=== PATIENT | female | born 1960 | race Caucasian/White ===

== ENCOUNTER 2023-07-13 10:11 | Observation (INO) ==
[2023-07-13] MEDS ORDERED: cefTRIAXone SODIUM 2,000 MG/70 ML BAG IV STA (11:35)
[2023-07-13 11:37] LABS: Basophils # (auto) 0.04 K/uL (0.00-0.20); Basophils % (auto) 0.5 %; Eosinophils # (auto) 0.33 K/uL (0.00-0.50); Eosinophils % (auto) 4.4 %; Hematocrit (blood only) 33.6 % (37.0-47.0); Hemoglobin 10.9 g/dl (12.0-16.0); Immature Granulocytes # (auto) 0.05 K/uL (0.01-0.20); Immature Granulocytes % (auto) 0.7 %; Lymphocytes # (auto) 1.33 K/uL (1.20-3.40); Lymphocytes % (auto) 17.8 %; Mean Corpuscular Hemoglobin 25.5 pg (25.0-34.0); Mean Corpuscular Hgb Conc 32.4 g/dL (32.0-36.0); Mean Corpuscular Volume 78.7 fL (80.0-100.0); Mean Platelet Volume 9.2 fL (9.4-12.4); Monocytes # (auto) 0.44 K/uL (0.11-0.59); Monocytes % (auto) 5.9 %; Neutrophils % (auto) 70.7 %; Platelet Count 249 K/uL (130-400); RDW Coefficient of Variation 14.7 % (11.5-14.5); RDW Standard Deviation 41.9 fL (36.4-46.3); Red Blood Count 4.27 M/uL (4.20-5.40); White Blood Count 7.49 K/ul (4.8-10.8)
--- NOTE | 2023-07-13 11:39 | XRay Report ---
XR chest 1V portable HISTORY: Sepsis COMPARISON: Chest 11/20/2022. FINDINGS: The lungs are clear. Cardiac silhouette is normal in size. No pleural effusions. No pneumot horax. IMPRESSION: No acute process. ACT 112: Negative or not required by law. Electronically signed by: Jayce Eller M.D. 07/13/2023 11:38 AM
--- NOTE | 2023-07-13 11:40 | Emergency Department Note ---
History of Present Illness General Chief complaint: Infection Stated complaint: INNER LEFT LEG INFECTION REDNESS Time Seen by Provider: 07/13/23 10:38 History of Present Illness Maximum Pain Intensity: 8 62-year-old female presents emergency department is type II diabetic has had a 3-week history of skin changes in the left lower extremity medially and has been picking at the wound over the course of the past 2 to 3 weeks. Patient recently was seen by her primary care physician and was started on wound care with bandaging and use of Aquaphor as well as currently on a 7-day course of Bactrim. Patient states at times that the wound is burning. Patient has no other complaints. No fever no chills. No streaking up the left lower extremity and no other pain. Home Medications Medication Instructions Recorded Confirmed Type levothyroxine 137 mcg tablet 137 mcg PO DAILY #90 tabs 12/26/22 07/06/23 Rx triamcinolone acetonide 55 mcg 2 spray intranasal DAILY #16.9 mL 12/26/22 07/06/23 Rx nasal spray aerosol (Nasacort Allergy) trazodone 50 mg tablet 50 mg PO DAILY PRN insomnia #30 03/16/23 07/06/23 Rx tabs benzonatate 100 mg capsule 100 mg PO BID PRN cough #30 caps 03/20/23 07/06/23 Rx bupropion HCl 100 mg tablet 100 mg PO QAM 04/30/23 07/06/23 History pantoprazole 40 mg tablet,delayed 40 mg PO BID #60 tabs 05/15/23 07/06/23 Rx release hydroxyzine HCl 25 mg tablet 25 mg PO HS PRN anxiety #90 tabs 06/26/23 07/06/23 Rx ondansetron 4 mg disintegrating 4 mg PO Q8H PRN nausea and 06/26/23 07/06/23 Rx tablet vomiting #30 tabs tirzepatide 5 mg/0.5 mL 5 mg (0.5 mL) subcut WK #2 mL 07/02/23 07/06/23 Rx subcutaneous pen injector sulfamethoxazole 800 1 tab PO BID 7 days #14 tabs 07/06/23 07/06/23 Rx mg-trimethoprim 160 mg tablet (Bactrim DS) Allergies Allergy/AdvReac Type Severity Reaction Status Date / Time fluoxetine [From Prozac] Allergy Severe Depression Verified 07/06/23 15:34 fluticasone [From Flonase] Allergy Intermediate Cough Verified 07/06/23 15:34 influenza virus vac qs Allergy Intermediate Hives Verified 07/06/23 15:34 21-22(2 yr up) cell derived [From Flucelvax Quad 2040-4931] influenza virus vaccine tv Allergy Intermediate Hives Verified 07/06/23 15:34 2013-14(18-49 yrs),rcmb [From Flublok] Past Med/Surg History Medical History Anemia Anxiety Arthritis Environmental and seasonal allergies GERD (gastroesophageal reflux disease) History of COVID-19 01/18/23 > not hospitalized > cough, vomiting, continues with shortness of breath, and feeling like something stuck in throat / reason for up coming EGD Hx of bipolar disorder Hypothyroidism Mild intellectual disability Obesity Panic attack on occasion approx 2 per month Paroxysmal nocturnal dyspnea no device Peripheral neuropathy BLE Type 2 diabetes mellitus with peripheral neuropathy NIDDM Surgical History Family history of reaction to anesthesia MOTHER SLOW TO WAKE UP History of cholecystectomy History of colonoscopy History of tubal ligation S/P LEEP of cervix Slow to wake up after anesthesia [place] teeth extracted Family History Grandmother (Maternal) Diabetes Father Hypothyroidism Mother Hypothyroidism Other HOCM (hypertrophic obstructive cardiomyopathy) Denies family history of Ovarian cancer Prostate cancer Myocardial infarction Breast cancer Colorectal cancer Social History Smoking Status: Never smoker Second Hand Exposure: No; Do You Dip or Chew Tobacco: No; Hx Alcohol Use: Yes Alcohol Intake Frequency: Monthly or Less Hx Substance Use: No Preferred Language: Sinhala Communication Ability: Effective Visual Impairment: No Limitations Hearing Ability: Normal 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 Works over nights. Feels Safe at Home: Yes Childhood Exposure to Second-Hand Smoke: Yes Dental Care, Regularly: Yes Physical Activity Frequency: Daily Seatbelt Use: always Sunscreen Use: No Assistive Devices: Glasses Review of Systems A total of 10 systems reviewed and were otherwise negative Constitutional: no fever Integumentary: + skin ulcer, + sores and + erythema Physical Exam Vital Signs Vital Signs - 24 hr 07/13/23 10:23 07/13/23 11:29 07/13/23 11:32 Temperature 36.1 C L Temperature Source Temporal Artery Scan Pulse Rate 72 Pulse Rate [Apical] 61 Pulse Rhythm [Apical] Respiratory Rate 16 18 Respiratory Effort / Characteristics Non-Labored Respiratory Depth Normal Normal Blood Pressure 108/72 Blood Pressure [Left Arm] 139/51 L Blood Pressure Mean 84 Blood Pressure Mean [Left Arm] 80 Blood Pressure Position [Left Arm] Pulse Oximetry 99 98 95 Oxygen Delivery Method Room Air Room Air Room Air Sepsis Recent Fever Within 48 Hours No Sepsis New/Unexplained Change in Mental Status N/A Sepsis Action Taken by Nursing No Action Required 07/13/23 12:03 Temperature Temperature Source Pulse Rate Pulse Rate [Apical] 67 Pulse Rhythm [Apical] Regular Respiratory Rate 16 Respiratory Effort / Characteristics Respiratory Depth Normal Blood Pressure Blood Pressure [Left Arm] 127/55 L Blood Pressure Mean Blood Pressure Mean [Left Arm] 79 Blood Pressure Position [Left Arm] Lying Pulse Oximetry 97 Oxygen Delivery Method Room Air Sepsis Recent Fever Within 48 Hours Sepsis New/Unexplained Change in Mental Status Sepsis Action Taken by Nursing GENERAL: Patient is awake alert in no acute distress patient is resting comfortably and showing no signs of anxiety EYES: The conjunctivae are clear. The pupils are round and reactive. EARS, NOSE, MOUTH AND THROAT: The nose is without any evidence of any deformity. Mucous membranes are moist. Tongue is midline. NECK: The neck is nontender and supple. RESPIRATORY: Normal respiratory effort is noted there is no evidence of wheezing rhonchi or rales CARDIOVASCULAR: Regular rate and rhythm noted there no murmurs rubs or gallops normal S1 normal S2. GASTROINTESTINAL: The abdomen is soft. Abdomen is nontender. BACK: Full range of motion MUSCULOSKELETAL/EXTREMITIES: There is no evidence of gross deformity full range of motion is noted in the hips and shoulders. Patient has a bounding DP pulse in the left foot SKIN: Bilateral lower extremities with brown pigmentation changes ; left lower extremity has brown pigment changes and medially has an area of open wound with redness no significant purulence no erythema proximally or distally, appears macerated. There are no petechiae, pallor or cyanosis noted. NEUROLOGIC: Patient is awake alert and oriented x3 strength is symmetric Course Reevaluation(s) Reevaluation #1: Patient was started on IV fluids, IV Rocephin and wound care was provided Time: 12:06 Consultations Consultation #1: Case was discussed with the [facility]ist for admission for left lower extremity cellulitis, URMILA and hyperglycemia Time: 12:06 Administered Medications Discontinued Medications Ceftriaxone Sodium (Rocephin) 2,000 mg in 70 mls @ 140 mls/hr IV NOW STA Stop: 07/13/23 12:04 Last Admin: 07/13/23 11:59 Dose: 140 mls/hr Documented By: JOSE Medical Decision Making Medical Records Attestation: I reviewed the patient's medical records. Home Medications Current Medication List: was personally reviewed by me Laboratory Data Attestation: I reviewed the patient's lab results. 07/13/23 11:10 07/13/23 11:10 Lab Results 07/13/23 07/13/23 Range/Units 11:10 11:10 WBC 7.49 (4.8-10.8) K/ul RBC 4.27 (4.20-5.40) M/uL Hgb 10.9 L (12.0-16.0) g/dl Hct 33.6 L (37.0-47.0) % MCV 78.7 L (80.0-100.0) fL MCH 25.5 (25.0-34.0) pg MCHC 32.4 (32.0-36.0) g/dL RDW Std Deviation 41.9 (36.4-46.3) fL RDW Coeff of Radha 14.7 H (11.5-14.5) % Plt Count 249 (130-400) K/uL MPV 9.2 L (9.4-12.4) fL Immature Gran % (Auto) 0.7 % Neut % (Auto) 70.7 % Lymph % (Auto) 17.8 % [place] % (Auto) 5.9 % Eos % (Auto) 4.4 % Baso % (Auto) 0.5 % Neut # (Auto) 5.30 (1.40-6.50) K/uL Lymph # (Auto) 1.33 (1.20-3.40) K/uL [place] # (Auto) 0.44 (0.11-0.59) K/uL Eos # (Auto) 0.33 (0.00-0.50) K/uL Baso # (Auto) 0.04 (0.00-0.20) K/uL Immature Gran # (Auto) 0.05 (0.01-0.20) K/uL Sodium 137 (136-145) mmol/L Potassium 5.3 H (3.5-5.1) mmol/L Chloride 107 (98-107) mmol/L Carbon Dioxide 24 (21-32) mmol/L Anion Gap 6 (3-11) BUN 39 H (6-23) mg/dl Creatinine 1.94 H (0.6-1.2) mg/dl Est Cr Clr Drug Dosing 37.9 ml/min Est GFR ( Amer) 31.8 ml/min Est GFR (Non-Af Amer) 27.5 ml/min BUN/Creatinine Ratio 20.1 H (10-20) Glucose 128 H (70-99(Fasting)) mg/dl Calcium 8.6 (8.6-10.3) mg/dl Magnesium 2.6 H (1.7-2.4) mg/dl Total Bilirubin 0.4 (0.2-1.0) mg/dl Direct Bilirubin 0.1 (0-0.2) mg/dl AST 12 L (13-39) U/L ALT 13 (7-52) U/L Alkaline Phosphatase 88 (34-104) U/L Total Protein 7.0 (6.0-8.3) gm/dl Albumin 4.2 (3.4-5.0) gm/dl Imaging Data Attestation: I personally reviewed and interpreted this imaging study as follows: My Impression: Chest x-ray interpreted by me negative for infiltrate Radiologist's Impression: Chest X-Ray 07/13/23 10:39 XR chest 1V portable HISTORY: Sepsis COMPARISON: Chest 11/20/2022. FINDINGS: The lungs are clear. Cardiac silhouette is normal in size. No pleural effusions. No pneumothorax. IMPRESSION: No acute process. ACT 112: Negative or not required by law. Electronically signed by: Jayce Eller M.D. 07/13/2023 11:38 AM MDM Narrative Medical decision making differential diagnosis includes infected skin ulcer, cellulitis, localized infection, vasculitis Plan is to provide wound care, IV antibiotics, check labs Impression & Plan Cellulitis and abscess of left leg, URMILA (acute kidney injury), Acute hyperglycemia Discharge Plan Visit Data Chief Complaint: Infection Stated Complaint: INNER LEFT LEG INFECTION REDNESS ED Provider: Reed Salazar Discharge Problem: Cellulitis and abscess of left leg, URMILA (acute kidney injury), Acute hyperglycemia Patient Disposition: Admitted As Inpatient Forms Stand Alone Forms: My [facility] Prescriptions Prescriptions: No Action trazodone 50 mg tablet 50 mg PO DAILY PRN (Reason: insomnia) Qty: 30 5RF triamcinolone acetonide [Nasacort Allergy] 55 mcg aerosol,spray 2 spray intranasal DAILY Qty: 16.9 3RF Rx Instructions: administer into each nostril levothyroxine 137 mcg tablet 137 mcg PO DAILY Qty: 90 1RF Hold Instructions: pt not currently taking Patient Comments: "TAKES ONCE IN A WHILE" pantoprazole 40 mg tablet,delayed release (DR/EC) 40 mg PO BID Qty: 60 11RF hydroxyzine HCl 25 mg tablet 25 mg PO HS PRN (Reason: anxiety) Qty: 90 3RF ondansetron 4 mg tablet,disintegrating 4 mg PO Q8H PRN (Reason: nausea and vomiting) Qty: 30 0RF tirzepatide 5 mg/0.5 mL pen injector 5 mg subcut WK Qty: 2 0RF benzonatate 100 mg capsule 100 mg PO BID PRN (Reason: cough) Qty: 30 1RF sulfamethoxazole-trimethoprim [Bactrim DS] 800-160 mg tablet 1 tab PO BID 7 Days Qty: 14 0RF bupropion HCl 100 mg tablet 100 mg PO QAM Patient Comments: PT STATES DOES NOT TAKE EVERY DAY Referrals Referrals: Liliana Sanchez MD [Primary Care Provider] -
[2023-07-13 11:54] LABS: Albumin Level 4.2 gm/dl (3.4-5.0); BUN Creatinine Ratio 20.1 (10-20); Bilirubin Direct 0.1 mg/dl (0-0.2); Bilirubin,Total 0.4 mg/dl (0.2-1.0); Calcium 8.6 mg/dl (8.6-10.3); Creatinine Clr Calc Pharmacy 37.9 ml/min; Est GFR (African American) 31.8 ml/min; Est GFR (Non-African American) 27.5 ml/min; Magnesium 2.6 mg/dl (1.7-2.4); Potassium 5.3 mmol/L (3.5-5.1)
[2023-07-13] MEDS ORDERED: SODIUM CHLORIDE 0.9% 1,000 ML IV ONE ×2 (12:01→12:10)
[2023-07-13] MEDS ORDERED: STAT IV STA (12:10)
[2023-07-13] MEDS ORDERED: INSULIN HUMAN REGULAR PER UNIT 10 UNITS in SYRINGE 9.9 ML IV STA (12:10)
[2023-07-13] MEDS ORDERED: CALCIUM GLUCONATE 10% 1,000 MG in DEXTROSE 5% 50 ML IV STA (12:10)
[2023-07-13] MEDS ORDERED: DEXTROSE 50% 50 ML SYRINGE IV STA (12:10)
[2023-07-13] MEDS ORDERED: PLASMA-LYTE A 1,000 ML IV ONE (12:12)
[2023-07-13] MEDS ORDERED: VANCOMYCIN CONSULT ACTIVE PRN (12:12)
[2023-07-13] MEDS ORDERED: VANCOMYCIN HCL 2,000 MG in SODIUM CHLORIDE 0.9% 500 ML IV ONE (12:12)
[2023-07-13] MEDS ORDERED: GLUCAGON FOR INJ 1 MG VIAL SQ PRN (12:16)
[2023-07-13] MEDS ORDERED: GLUCOSE 10 TAB/TUBE PO PRN (12:16)
[2023-07-13] MEDS ORDERED: DEXTROSE 50% 50 ML SYRINGE IV PRN (12:16)
[2023-07-13] MEDS ORDERED: GLUCOSE 40% GEL 15 GM TUBE PO PRN (12:16)
[2023-07-13] MEDS ORDERED: CARBOHYDRATES FOR HYPOGLYCEMIA PO PRN (12:16)
--- NOTE | 2023-07-13 12:16 | History & Physical Report ---
Date of Service July 13, 2023 Assessment & Plan (1) URMILA (acute kidney injury): Plan: -Admit to med/tele -Currently stable -Patient noted to have a cr of 1.94 today baseline is near 0.9, BUN elevated at 39 -Likely due to excessive NSAID use over the past 2 weeks and recent Bactrim use as well -No signs or symptoms to suggest obstruction at this time -S/P 1L NSS in the ED, will switch her to 1L Normosol on admission -Avoid nephrotoxic agents -Monitor daily renal function -DMII diet -SQ Heparin for DVT PPX -AM CBC, BMP, Mag (2) Hyperkalemia: Plan: -Potassium elevated at 5.3 -Likely due to her URMILA -No acute ECG changes -Will treat medically with Calcium gluconate, insulin, and dextrose -Expect potassium to normalize, will repeat a 4 hour K+ -Continue to monitor on tele for now (3) Venous stasis ulcer: Plan: -Patient's LLE ulcer is consistent with a non-infected venous stasis/diabetic ulcer with normal granulation -No signs of infected drainage or surrounding erythema or cellulitis -WBC WNL, procal is negative, no recent fevers -Has been on a 7 day course of bactrim, hold with URMILA -S/P one dose of ceftriaxone, stopped the Vancomycin order before she received it as her ulcer does not appear infected and she has an URMILA -Will hold additional abx at this time, monitor for leukocytosis and fever -Will obtain arterial doppler of the LLE -Wound care nurse consult placed -PO tylenol for mild pain -Will start 100 mg PO Gabapentin BID for neuropathic pain to see if this gives her some relief (4) Hypothyroidism: Plan: -Continue levothyroxine (5) Type 2 diabetes mellitus with peripheral neuropathy: Plan: -Monitor BSG ACHS, goal is 110-140 -Hold home Mounjaro -Start CF of 50 ACHS -DMII diet Plan The patient was discussed with Dr. Waldron at the time of the admission History of Present Illness Chief Complaint: Worsening LE wound Primary Care Provider: Liliana Sanchez MD Georgiana is a 62 year old female with a PMH significant for DMII, chronic BL LE venous stasis, hypothyroidism, intellectual disability who presented to the [facility] ED on 07/13 at the recommendation of her PCP for worsening left LE wound. Per chart review, the patient has chronic venous stasis of the BL LE's. The patient was reportedly picking at her legs and developed increased erythema, swelling, drainage, and pain in the LLE. Her PCP prescribed a 7 day course of Bactrim on 07/07, but the wound continues to progress. The patient has been stable while in the ED. Labs were significant for a CBC WNL, Cr of 1.94 (baseline is 0.9), BUN of 39, potassium of 5.3, mag of 2.5. Chest xray was negative for acute findings. Prior to admission the patient was given a dose of ceftriaxone, 1L NSS, and a dose of Vancomycin. At the time of the exam the patient was sitting in bed in no acute distress with her mother sitting bedside. The patient explains that she has had chronic LE swelling with darkening on the medical aspects of her LE's. Recently, she has been bumping and picking at the left LE skin changes, she also notes increased burning in the LLE. She has been following up with her PCP outpatient for this ulcer, they had been using Aquacel bandages and conservative treatment. She has been taking the Bactrim as prescribed and has been taking 4 tablets of Ibuprofen, 4 times daily for a week and a half due to her increased pain. She denies recent fever or chills, chest pain, abd pain, nausea, vomiting, diarrhea, melena, dysuria, hematuria, and recent trauma. I explained to her that she should not take that much ibuprofen daily and for that many consecutive days as it can hurt her kidneys, stomach, and heart. Please refer to Dr. Waldron's attestation for any changes to the treatment plan. Allergies Allergy/AdvReac Type Severity Reaction Status Date / Time fluoxetine [From Prozac] Allergy Severe Depression Verified 07/06/23 15:34 fluticasone [From Flonase] Allergy Intermediate Cough Verified 07/06/23 15:34 influenza virus vac qs Allergy Intermediate Hives Verified 07/06/23 15:34 -22(2 yr up) cell derived [From Flucelvax Quad 1232-0579] influenza virus vaccine tv Allergy Intermediate Hives Verified 07/06/23 15:34 2013-14(18-49 yrs),rcmb [From FluLife in [employer]] Home Medications Medication Instructions Recorded Confirmed Type levothyroxine 137 mcg tablet 137 mcg PO DAILY #90 tabs 12/26/22 07/13/23 Rx triamcinolone acetonide 55 mcg 2 spray intranasal DAILY #16.9 mL 12/26/22 07/13/23 Rx nasal spray aerosol (Nasacort Allergy) trazodone 50 mg tablet 50 mg PO DAILY PRN insomnia #30 03/16/23 07/13/23 Rx tabs benzonatate 100 mg capsule 100 mg PO BID PRN cough #30 caps 03/20/23 07/13/23 Rx bupropion HCl 100 mg tablet 100 mg PO QAM 04/30/23 07/13/23 History pantoprazole 40 mg tablet,delayed 40 mg PO BID #60 tabs 05/15/23 07/13/23 Rx release hydroxyzine HCl 25 mg tablet 25 mg PO HS PRN anxiety #90 tabs 06/26/23 07/13/23 Rx ondansetron 4 mg disintegrating 4 mg PO Q8H PRN nausea and 06/26/23 07/13/23 Rx tablet vomiting #30 tabs tirzepatide 5 mg/0.5 mL 5 mg (0.5 mL) subcut WK #2 mL 07/02/23 07/13/23 Rx subcutaneous pen injector sulfamethoxazole 800 1 tab PO BID 7 days #14 tabs 07/06/23 07/13/23 Rx mg-trimethoprim 160 mg tablet (Bactrim DS) Past Med/Surg History Medical History Anemia Anxiety Arthritis Environmental and seasonal allergies GERD (gastroesophageal reflux disease) History of COVID-19 01/18/23 > not hospitalized > cough, vomiting, continues with shortness of breath, and feeling like something stuck in throat / reason for up coming EGD Hx of bipolar disorder Hypothyroidism Mild intellectual disability Obesity Panic attack on occasion approx 2 per month Paroxysmal nocturnal dyspnea no device Peripheral neuropathy BLE Type 2 diabetes mellitus with peripheral neuropathy NIDDM Surgical History Family history of reaction to anesthesia MOTHER SLOW TO WAKE UP History of cholecystectomy History of colonoscopy History of tubal ligation S/P LEEP of cervix Slow to wake up after anesthesia [place] teeth extracted Family History Grandmother (Maternal) Diabetes Father Hypothyroidism Mother Hypothyroidism Other HOCM (hypertrophic obstructive cardiomyopathy) Denies family history of Ovarian cancer Prostate cancer Myocardial infarction Breast cancer Colorectal cancer Social History Smoking Status: Former smoker Second Hand Exposure: No; Do You Dip or Chew Tobacco: No; Hx Alcohol Use: Yes Alcohol type: hard liquor Alcohol Intake Frequency: Monthly or Less Hx Substance Use: No Preferred Language: Nepalese Communication Ability: Effective Visual Impairment: No Limitations 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 Works over nights. Other Information That Helps Us Care for You: No Feels Safe at Home: Yes Safety Concerns: Feels Safe At This Time Childhood Exposure to Second-Hand Smoke: Yes Dental Care, Regularly: Yes Physical Activity Frequency: Daily Seatbelt Use: always Sunscreen Use: No Assistive Devices: Glasses Physical Exam Physical Exam: Physical Exam: General: In no acute distress, stated age, well-nourished, good hygiene HEENT: Normocephalic, atraumatic, no scleral icterus, pupils around round, symmetrical, and reactive to light, moist mucus membranes, trachea midline, no thyromegaly Chest/Pulm: No respiratory distress, symmetrical chest expansion, clear breath sounds throughout Cardiac: RRR, no murmurs noted Abdomen: Negative for ascites and bruising, normoactive bowel sounds, soft, non-tender to palpation throughout Musculoskeletal: Symmetrical and without signs of acute trauma, upper and lower extremities with full ROM, no atrophy, spasticity, or flaccidity Extremities: Radial, dorsalis pedis, and posterior tibial pulses are intact and symmetrical, no edema noted in the BL LE's Skin: Patient with signs of chronic venous stasis overlying the medical aspect of the BL ankles. Left LE has a large area of skin breakdown which is erythematous in the ulcer itself but without significant erythema surrounding the wound, appears consistent with granulation of a chronic venous stasis ulcer, clear drainage without sings of pus Neuro: Alert and oriented to person, place, month, year, and president, no focal defects, no tremors noted Psych: No acute distress, calm and cooperative during the exam Results & Data Results & Data Vital Signs (Past 12 Hours) Vital Signs Temp Pulse Pulse Resp BP BP Pulse Ox 07/13/23 12:03 67 16 127/55 L 97 07/13/23 11:32 95 07/13/23 11:29 61 18 139/51 L 98 07/13/23 10:23 36.1 C L 72 16 108/72 99 O2 Del Method 07/13/23 12:03 Room Air 07/13/23 11:32 Room Air 07/13/23 11:29 Room Air 07/13/23 10:23 Room Air Laboratory Results Abnormal lab results 07/13/23 07/13/23 07/13/23 Range/Units 11:10 11:10 11:55 Hgb 10.9 L (12.0-16.0) g/dl Hct 33.6 L (37.0-47.0) % MCV 78.7 L (80.0-100.0) fL RDW Coeff of Radha 14.7 H (11.5-14.5) % MPV 9.2 L (9.4-12.4) fL Potassium 5.3 H (3.5-5.1) mmol/L BUN 39 H (6-23) mg/dl Creatinine 1.94 H (0.6-1.2) mg/dl BUN/Creatinine Ratio 20.1 H (10-20) Glucose 128 H (70-99(Fasting)) mg/dl Lactate 2.4 H* (0.4-2.0) mmol/L Magnesium 2.6 H (1.7-2.4) mg/dl AST 12 L (13-39) U/L Diagnostic Findings Chest X-Ray 07/13/23 10:39 XR chest 1V portable HISTORY: Sepsis COMPARISON: Chest 11/20/2022. FINDINGS: The lungs are clear. Cardiac silhouette is normal in size. No pleural effusions. No pneumothorax. IMPRESSION: No acute process. ACT 112: Negative or not required by law. Electronically signed by: Jayce Eller M.D. 07/13/2023 11:38 AM ECG Additional Comments: Normal sinus rhythm Normal ECG No previous ECGs available Code Status & VTE Plan Code Status Full code VTE Prophylaxis Plan VTE Prophylaxis will be ordered: Yes Supervising Physician Co-Signing Physician Notes I personally saw and examined the patient. I verified all cotter points and agree with Vignesh Monge PA-C with the following exceptions and/or additions: 62 year old female presents to the ER on advice of her PCP for worsening leg wound. In the ER noted to have Cr. No fever or chills. O/E A&Ox3, no acute distress, HS RRR, no murmurs, Abdo SNT, Left leg wound as above, DP/PT pulses normal distal to this A/P URMILA/hyperkalemia - suspected due to NSAID use. Agree with plasmalyte bolus. No need for ongoing fluids. Potassium improving after insulin IV. Left leg wound - does not appear cellulitic (see picture above), no WBC or procalcitonin elevation. Avoid vancomycin given URMILA (stopped ER order prior to being given). Ceftriaxone one dose given in the ER, do not suspect she requires further antibiotics. Wound care consult. US arterial doppler. PG Care Time/CCT Total # of Minutes Spent Total Time Spent with Patient: Total time spent is greater than 50% in coordination of care (as documented) at patient's floor/unit and/or counseling patient: Coding [place] [address] INT INP/OBS CARE 2/55MIN Patient Type Established Medical Decision Making Moderate Complexity Diagnoses URMILA (acute kidney injury) N17.9 Hyperkalemia E87.5 Venous stasis ulcer I83.009; L97.909 Hypothyroidism E03.9 Type 2 diabetes mellitus with peripheral neuropathy E11.42
[2023-07-13 13:13] LABS: Appearance Urine Clear (Clear); Bilirubin Urine Negative (Negative); Blood Urine Negative (Negative); Color Urine Yellow; Epithelial Cell Urine Auto >30 /lpf (0-5); Glucose Urine UA Negative (Negative); Ketones Urine Trace (Negative); Leukocyte Esterase Urine Negative (Negative); Nitrite Urine Negative (Negative); Protein Urine Trace (Negative); RBC Urine Automated 0-4 /hpf (0-4); Specific Gravity Urine 1.017 (1.000-1.030); Urobilinogen Urine Negative (Negative); pH Urine 5.5 (4.5-7.5)
[2023-07-13 13:27] LABS: Bacteria Urine Automated 1+ (Negative)
[2023-07-13] MEDS ORDERED: ACETAMINOPHEN 325 MG TAB PO PRN (13:41)
[2023-07-13] MEDS ORDERED: traZODone HCL 50 MG TAB PO PRN (13:41)
[2023-07-13] MEDS ORDERED: ONDANSETRON 4 MG OD TAB PO PRN (13:41)
[2023-07-13] MEDS ORDERED: hydrOXYzine HCl 25 MG TAB PO PRN (13:41)
[2023-07-13] MEDS: GABAPENTIN 100 MG CAP PO SCH ×2 (14:23→21:05)
[2023-07-13] MEDS: HEPARIN SOD 5,000 UNIT/0.5 ML VIAL SQ SCH ×2 (15:06→21:05)
--- NOTE | 2023-07-13 15:12 | Ultrasound Report ---
US arterial duplex LE LT CLINICAL HISTORY: chronic left LE wound TECHNIQUE: Real-time grayscale and color and spectral Doppler ultrasound imaging of the left lower ex tremity arteries was performed. Measurements calculated based on NASCET criteria. COMPARISON: None available at the time of this dictation. FINDINGS: Triphasic flow is seen throughout with the exception of the peroneal artery which flow is biphasic. N o elevated velocities are seen. Ankle brachial indices were not obtained due to large ankle wound. Brachial: Left: 107 mmHg. Ankle (dorsalis pedis): Right: 180 mmHg. Left: 111 mmHg. Ankle/brachial index: Right: 1.01, Left: 1.04. Reference ranges: Normal Ankle/Brachial Index (LISET) 1.0-1.4; 0.91-0.99 borderline; < or = 0.9 abnormal (0.7-0.89 mild, 0.51-0.69 moderate, < or = 0.5 severe peripheral arterial disease). Normal Toe/Brachial Index (TBI) > or = 0.6; < 0.6 abnormal (0.34-0.59 mild, 0.12-0.34 moderate, < or = 0.11 severe peripheral arterial disease). IMPRESSION: 1. No hemodynamically significant stenosis. 2. Normal ankle-brachial indices. ACT 112: Negative or not required by law. Electronically signed by: Finn Kumar M.D. 07/13/2023 3:11 PM
[2023-07-13] MEDS: ACETAMINOPHEN 325 MG TAB PO PRN (16:13)
--- NOTE | 2023-07-13 18:14 | Electrocardiogram Report ---
Test Reason : Blood Pressure : / mmHG Vent. Rate : 060 BPM Atrial Rate : 060 BPM P-R Int : 154 ms QRS Dur : 074 ms QT Int : 382 ms P-R-T Axes : 040 008 017 degrees QTc Int : 382 ms Normal sinus rhythm Normal ECG No previous ECGs available Confirmed by Charan Wang ([id number]) on 07/13/2023 6:13:57 PM Referred By: Confirmed By:Juancho Wang
[2023-07-13] MEDS: INSULIN ASPART PER UNIT CHARGE SC SCH ×2 (18:18→20:45)
[2023-07-13] MEDS: PANTOprazole 40 MG TAB PO SCH (21:05)
[2023-07-13] MEDS: traMADol HCL 50 MG TABLET PO PRN (21:05)
[2023-07-13] MEDS ORDERED: ACETAMINOPHEN 500 MG TAB PO ONE (22:01)
[2023-07-13] MEDS ORDERED: HYDROmorphone INJ 0.5 MG/0.5 ML SYR IV PRN (22:06)
[2023-07-13] MEDS: MELATONIN 3 MG TAB PO PRN (22:12)
[2023-07-14] MEDS: traMADol HCL 50 MG TABLET PO PRN ×2 (01:36→20:45)
[2023-07-14] MEDS: LEVOTHYROXINE SODIUM 137 MCG TABLET PO SCH (06:17)
[2023-07-14 06:40] LABS: Basophils # (auto) 0.04 K/uL (0.00-0.20); Basophils % (auto) 0.6 %; Eosinophils # (auto) 0.26 K/uL (0.00-0.50); Eosinophils % (auto) 4.1 %; Hematocrit (blood only) 32.4 % (37.0-47.0); Hemoglobin 10.4 g/dl (12.0-16.0); Immature Granulocytes # (auto) 0.04 K/uL (0.01-0.20); Immature Granulocytes % (auto) 0.6 %; Lymphocytes # (auto) 1.29 K/uL (1.20-3.40); Lymphocytes % (auto) 20.5 %; Mean Corpuscular Hemoglobin 25.4 pg (25.0-34.0); Mean Corpuscular Hgb Conc 32.1 g/dL (32.0-36.0); Mean Platelet Volume 9.7 fL (9.4-12.4); Monocytes # (auto) 0.45 K/uL (0.11-0.59); Monocytes % (auto) 7.2 %; Platelet Count 231 K/uL (130-400); RDW Coefficient of Variation 14.7 % (11.5-14.5); RDW Standard Deviation 42.5 fL (36.4-46.3); White Blood Count 6.28 K/ul (4.8-10.8)
[2023-07-14 06:58] LABS: BUN Creatinine Ratio 20.6 (10-20); Calcium 8.3 mg/dl (8.6-10.3); Creatinine Clr Calc Pharmacy 52.1 ml/min; Est GFR (African American) 46.8 ml/min; Est GFR (Non-African American) 40.4 ml/min; Potassium 4.8 mmol/L (3.5-5.1)
[2023-07-14 07:18] LABS: Ferritin 310.4 ng/ml (8-388)
--- NOTE | 2023-07-14 07:55 | Hospitalist Progress Note ---
Date of Service July 14, 2023 Assessment & Plan (1) URMILA (acute kidney injury): Plan: Cr 1.94 on admission with normal prior baseline, multifactorial * Recent Bactrim use for LE cellulitis in diabetic patient * Ibuprofen use (reported 4 tablets q4h for pain) * RECENTLY started MOUNJARO for her DM which can also cause acute kidney injury BUN/Cr 39/1.94 with K 5.3 (given calcium gluconate/insulin) and lactic 2.4 (repeat 1.3) UA noting WBC casts, inflammation in kidneys suspected, apparently no symptoms of infection reported 1L IVF overnight, Cr improving to 1.41 No symptoms of obstruction at present or CVA tenderness on exam -- monitor Renal dose meds/avoid nephrotoxins Encouraged to avoid NSAIDs as able Gabapentin added for pain 100mg BID -- can titrate as able, renal dose -- she does report some improvement in pain with such DVT proph: Heparin SQ Monitor labs on repeat (2) Hyperkalemia: Plan: K 5.3 on admission given ca gluconate/insulin and dextrose Repeat K stable at 4.8 Not on any DENIZ/ARB Will change diet to include low K diet No arrhythmia on monitor BMP in AM (3) Venous stasis ulcer: Plan: Patient's LLE ulcer is consistent with a non-infected venous stasis/diabetic ulcer with normal granulation No signs of infected drainage or surrounding erythema or cellulitis WBC WNL, procal is essentially negative 0.06 No fevers/chills reported Had been on 7 day course bactrim, held w/ URMILA GIven Ceftriaxone in ER, not given Vanco on admit as did not appear infected Arterial doppler earlier this year with normal TBI for healing Repeated on admission and no acute issue Wound RN consulted -- likely not be seen until Sunday, ?outpt wound pending progress tomorrow if wanting to go home/no infected appearance Started 100 mg PO Gabapentin BID for neuropathic pain to see if this gives her some relief check b12 (4) Hypothyroidism: Plan: Continue levothyroxine , last TSH wnl in system from June (5) Type 2 diabetes mellitus with peripheral neuropathy: Plan: Monitor BSG ACHS, goal is 110-140 Hold home Mounjaro Start CF of 50 ACHS DMII diet Of note, Mounjaro started in the past month, suspect could have contributed to URMILA in setting of Bactrim use Monitor/resume, close f/u and repeat labs w/ PCP if resuming (6) Microcytic anemia: Plan: MCV 78-79, iron panel not significantly deficient Suspected from ibuprofen use. denied any bleeding/blood, can check fecal occult for completeness continue protonix BID in meantime (recent EGD w/ GI, eosinophilic esophagitis found) Plan continued inpatient stay Admission and Anticipated Discharge Date Admission Date: July 13, 2023 Supervising Physician Co-Signing Physician Notes The patient was not seen by me. The chart was reviewed. Case discussed with JANINE Akins. Agree with assessment and plan Subjective eval this morning, doing alright kidney function improving denies any burning/blood in urine or increased frequency/back pain was to see Natalie Prema on Sunday for her ulcers, and ref to wound care if not improving she reports some improvement in pain with gabapentin, but that she was taking 4 ibuprofen every 4 hours for pain at home. Discussed wound RN consult while inpatient but not here on the weekend. She had used silvadine in the past with burning pain, recently using Aquaphor which had been effective. No fever/chills, chest pain, shortness of breath reported. Works in [employer] at [employer]. Will need work note when ready for discharge. Physical Exam Physical Exam: General: 62yo female sitting up in bed on her phone, NAD HEENT: head normocephalic, atraumatic, mm slightly dry, trachea midline Resp:CTA, slightly diminished in the bases, no w/c, on room air CV: RRR, no significant m/r/g, left leg slightly larger than right leg (see sk in), pulse palpable but diminished GI: +BS, soft/NT : no melendez MSK/Neuro/Skin: no slurred speech/facial droop, follows commands as able chronic venous stasis over bilateral ankles, RLE with kerlix/wrapped no surrounding cellulitis but is overly tender to palpation Psych: alert oriented to person/place/time Patient asked NOT to remove dressing -- imaging from admission as below Results & Data Results & Data Vital Signs (Past 12 Hours) Vital Signs Temp Pulse Pulse Resp BP Pulse Ox O2 Del Method 07/14/23 07:44 36.8 C 73 18 108/72 95 Room Air 07/14/23 03:07 36.9 C 74 18 108/68 97 Room Air 07/13/23 22:00 57 L 07/13/23 21:03 64 07/13/23 23:39 36.6 C 68 18 134/80 22 L Room Air Laboratory Results 07/14/23 07/14/23 07/14/23 Range/Units 12:01 07:52 05:41 WBC (4.8-10.8) K/ul RBC (4.20-5.40) M/uL Hgb (12.0-16.0) g/dl Hct (37.0-47.0) % MCV (80.0-100.0) fL MCH (25.0-34.0) pg MCHC (32.0-36.0) g/dL RDW Std Deviation (36.4-46.3) fL RDW Coeff of Radha (11.5-14.5) % Plt Count (130-400) K/uL MPV (9.4-12.4) fL Immature Gran % (Auto) % Neut % (Auto) % Lymph % (Auto) % Pierce % (Auto) % Eos % (Auto) % Baso % (Auto) % Neut # (Auto) (1.40-6.50) K/uL Lymph # (Auto) (1.20-3.40) K/uL Pierce # (Auto) (0.11-0.59) K/uL Eos # (Auto) (0.00-0.50) K/uL Baso # (Auto) (0.00-0.20) K/uL Immature Gran # (Auto) (0.01-0.20) K/uL Sodium 137 (136-145) mmol/L Potassium 4.8 (3.5-5.1) mmol/L Chloride 108 H (98-107) mmol/L Carbon Dioxide 24 (21-32) mmol/L Anion Gap 5 (3-11) BUN 29 H (6-23) mg/dl Creatinine 1.41 H D (0.6-1.2) mg/dl Est Cr Clr Drug Dosing 52.1 ml/min Est GFR ( Amer) 46.8 ml/min Est GFR (Non-Af Amer) 40.4 ml/min BUN/Creatinine Ratio 20.6 H (10-20) Glucose 166 H (70-99(Fasting)) mg/dl POC Glucose 143 H 178 H (70-99) mg/dl Lactate (0.4-2.0) mmol/L Calcium 8.3 L (8.6-10.3) mg/dl Iron 83 (35-150) mcg/dl TIBC 225 L (250-450) mcg/dl Unsaturated IBC 142 L (155-355) mcg/dl Transferrin % Sat 37 (15-50) % Ferritin 310.4 (8-388) ng/ml Procalcitonin (0-0.5) ng/ml Urine Color Urine Appearance (Clear) Urine pH (4.5-7.5) Ur Specific [place] (1.000-1.030) Urine Protein (Negative) Urine Glucose (UA) (Negative) Urine Ketones (Negative) Urine Blood (Negative) Urine Nitrite (Negative) Urine Bilirubin (Negative) Urine Urobilinogen (Negative) Ur Leukocyte Esterase (Negative) Urine WBC (Auto) (0-5) /hpf Urine RBC (Auto) (0-4) /hpf U Hyaline Cast (Auto) (0-5) /lpf U Epithel Cells (Auto) (0-5) /lpf Urine Bacteria (Auto) (Negative) Ur Renal Epithelial Cell WBC Casts (0) /lpf Nasal Screen MRSA (PCR) (Negative) 07/14/23 07/13/23 07/13/23 Range/Units 05:41 20:11 17:55 WBC 6.28 (4.8-10.8) K/ul RBC 4.10 L (4.20-5.40) M/uL Hgb 10.4 L (12.0-16.0) g/dl Hct 32.4 L (37.0-47.0) % MCV 79.0 L (80.0-100.0) fL MCH 25.4 (25.0-34.0) pg MCHC 32.1 (32.0-36.0) g/dL RDW Std Deviation 42.5 (36.4-46.3) fL RDW Coeff of Radha 14.7 H (11.5-14.5) % Plt Count 231 (130-400) K/uL MPV 9.7 (9.4-12.4) fL Immature Gran % (Auto) 0.6 % Neut % (Auto) 67.0 % Lymph % (Auto) 20.5 % Pierce % (Auto) 7.2 % Eos % (Auto) 4.1 % Baso % (Auto) 0.6 % Neut # (Auto) 4.20 (1.40-6.50) K/uL Lymph # (Auto) 1.29 (1.20-3.40) K/uL Pierce # (Auto) 0.45 (0.11-0.59) K/uL Eos # (Auto) 0.26 (0.00-0.50) K/uL Baso # (Auto) 0.04 (0.00-0.20) K/uL Immature Gran # (Auto) 0.04 (0.01-0.20) K/uL Sodium (136-145) mmol/L Potassium (3.5-5.1) mmol/L Chloride (98-107) mmol/L Carbon Dioxide (21-32) mmol/L Anion Gap (3-11) BUN (6-23) mg/dl Creatinine (0.6-1.2) mg/dl Est Cr Clr Drug Dosing ml/min Est GFR ( Amer) ml/min Est GFR (Non-Af Amer) ml/min BUN/Creatinine Ratio (10-20) Glucose (70-99(Fasting)) mg/dl POC Glucose 135 H 144 H (70-99) mg/dl Lactate (0.4-2.0) mmol/L Calcium (8.6-10.3) mg/dl Iron (35-150) mcg/dl TIBC (250-450) mcg/dl Unsaturated IBC (155-355) mcg/dl Transferrin % Sat (15-50) % Ferritin (8-388) ng/ml Procalcitonin (0-0.5) ng/ml Urine Color Urine Appearance (Clear) Urine pH (4.5-7.5) Ur Specific [place] (1.000-1.030) Urine Protein (Negative) Urine Glucose (UA) (Negative) Urine Ketones (Negative) Urine Blood (Negative) Urine Nitrite (Negative) Urine Bilirubin (Negative) Urine Urobilinogen (Negative) Ur Leukocyte Esterase (Negative) Urine WBC (Auto) (0-5) /hpf Urine RBC (Auto) (0-4) /hpf U Hyaline Cast (Auto) (0-5) /lpf U Epithel Cells (Auto) (0-5) /lpf Urine Bacteria (Auto) (Negative) Ur Renal Epithelial Cell WBC Casts (0) /lpf Nasal Screen MRSA (PCR) (Negative) 07/13/23 07/13/23 07/13/23 Range/Units 17:45 14:32 14:32 WBC (4.8-10.8) K/ul RBC (4.20-5.40) M/uL Hgb (12.0-16.0) g/dl Hct (37.0-47.0) % MCV (80.0-100.0) fL MCH (25.0-34.0) pg MCHC (32.0-36.0) g/dL RDW Std Deviation (36.4-46.3) fL RDW Coeff of Radha (11.5-14.5) % Plt Count (130-400) K/uL MPV (9.4-12.4) fL Immature Gran % (Auto) % Neut % (Auto) % Lymph % (Auto) % Pierce % (Auto) % Eos % (Auto) % Baso % (Auto) % Neut # (Auto) (1.40-6.50) K/uL Lymph # (Auto) (1.20-3.40) K/uL Pierce # (Auto) (0.11-0.59) K/uL Eos # (Auto) (0.00-0.50) K/uL Baso # (Auto) (0.00-0.20) K/uL Immature Gran # (Auto) (0.01-0.20) K/uL Sodium (136-145) mmol/L Potassium 4.1 D (3.5-5.1) mmol/L Chloride (98-107) mmol/L Carbon Dioxide (21-32) mmol/L Anion Gap (3-11) BUN (6-23) mg/dl Creatinine (0.6-1.2) mg/dl Est Cr Clr Drug Dosing ml/min Est GFR ( Amer) ml/min Est GFR (Non-Af Amer) ml/min BUN/Creatinine Ratio (10-20) Glucose (70-99(Fasting)) mg/dl POC Glucose (70-99) mg/dl Lactate 1.3 (0.4-2.0) mmol/L Calcium (8.6-10.3) mg/dl Iron (35-150) mcg/dl TIBC (250-450) mcg/dl Unsaturated IBC (155-355) mcg/dl Transferrin % Sat (15-50) % Ferritin (8-388) ng/ml Procalcitonin (0-0.5) ng/ml Urine Color Urine Appearance (Clear) Urine pH (4.5-7.5) Ur Specific [place] (1.000-1.030) Urine Protein (Negative) Urine Glucose (UA) (Negative) Urine Ketones (Negative) Urine Blood (Negative) Urine Nitrite (Negative) Urine Bilirubin (Negative) Urine Urobilinogen (Negative) Ur Leukocyte Esterase (Negative) Urine WBC (Auto) (0-5) /hpf Urine RBC (Auto) (0-4) /hpf U Hyaline Cast (Auto) (0-5) /lpf U Epithel Cells (Auto) (0-5) /lpf Urine Bacteria (Auto) (Negative) Ur Renal Epithelial Cell WBC Casts (0) /lpf Nasal Screen MRSA (PCR) Negative (Negative) 07/13/23 07/13/23 07/13/23 Range/Units 14:22 12:58 11:55 WBC (4.8-10.8) K/ul RBC (4.20-5.40) M/uL Hgb (12.0-16.0) g/dl Hct (37.0-47.0) % MCV (80.0-100.0) fL MCH (25.0-34.0) pg MCHC (32.0-36.0) g/dL RDW Std Deviation (36.4-46.3) fL RDW Coeff of Radha (11.5-14.5) % Plt Count (130-400) K/uL MPV (9.4-12.4) fL Immature Gran % (Auto) % Neut % (Auto) % Lymph % (Auto) % Pierce % (Auto) % Eos % (Auto) % Baso % (Auto) % Neut # (Auto) (1.40-6.50) K/uL Lymph # (Auto) (1.20-3.40) K/uL Pierce # (Auto) (0.11-0.59) K/uL Eos # (Auto) (0.00-0.50) K/uL Baso # (Auto) (0.00-0.20) K/uL Immature Gran # (Auto) (0.01-0.20) K/uL Sodium (136-145) mmol/L Potassium (3.5-5.1) mmol/L Chloride (98-107) mmol/L Carbon Dioxide (21-32) mmol/L Anion Gap (3-11) BUN (6-23) mg/dl Creatinine (0.6-1.2) mg/dl Est Cr Clr Drug Dosing ml/min Est GFR ( Amer) ml/min Est GFR (Non-Af Amer) ml/min BUN/Creatinine Ratio (10-20) Glucose (70-99(Fasting)) mg/dl POC Glucose 99 (70-99) mg/dl Lactate 2.4 H* (0.4-2.0) mmol/L Calcium (8.6-10.3) mg/dl Iron (35-150) mcg/dl TIBC (250-450) mcg/dl Unsaturated IBC (155-355) mcg/dl Transferrin % Sat (15-50) % Ferritin (8-388) ng/ml Procalcitonin (0-0.5) ng/ml Urine Color Yellow Urine Appearance Clear (Clear) Urine pH 5.5 (4.5-7.5) Ur Specific [place] 1.017 (1.000-1.030) Urine Protein Trace H (Negative) Urine Glucose (UA) Negative (Negative) Urine Ketones Trace H (Negative) Urine Blood Negative (Negative) Urine Nitrite Negative (Negative) Urine Bilirubin Negative (Negative) Urine Urobilinogen Negative (Negative) Ur Leukocyte Esterase Negative (Negative) Urine WBC (Auto) 5-10 H (0-5) /hpf Urine RBC (Auto) 0-4 (0-4) /hpf U Hyaline Cast (Auto) 1-5 (0-5) /lpf U Epithel Cells (Auto) >30 H (0-5) /lpf Urine Bacteria (Auto) 1+ H (Negative) Ur Renal Epithelial Cell Not Reportable WBC Casts 1-5 H (0) /lpf Nasal Screen MRSA (PCR) (Negative) 07/13/23 Range/Units 11:10 WBC (4.8-10.8) K/ul RBC (4.20-5.40) M/uL Hgb (12.0-16.0) g/dl Hct (37.0-47.0) % MCV (80.0-100.0) fL MCH (25.0-34.0) pg MCHC (32.0-36.0) g/dL RDW Std Deviation (36.4-46.3) fL RDW Coeff of Radha (11.5-14.5) % Plt Count (130-400) K/uL MPV (9.4-12.4) fL Immature Gran % (Auto) % Neut % (Auto) % Lymph % (Auto) % Pierce % (Auto) % Eos % (Auto) % Baso % (Auto) % Neut # (Auto) (1.40-6.50) K/uL Lymph # (Auto) (1.20-3.40) K/uL Pierce # (Auto) (0.11-0.59) K/uL Eos # (Auto) (0.00-0.50) K/uL Baso # (Auto) (0.00-0.20) K/uL Immature Gran # (Auto) (0.01-0.20) K/uL Sodium (136-145) mmol/L Potassium (3.5-5.1) mmol/L Chloride (98-107) mmol/L Carbon Dioxide (21-32) mmol/L Anion Gap (3-11) BUN (6-23) mg/dl Creatinine (0.6-1.2) mg/dl Est Cr Clr Drug Dosing ml/min Est GFR ( Amer) ml/min Est GFR (Non-Af Amer) ml/min BUN/Creatinine Ratio (10-20) Glucose (70-99(Fasting)) mg/dl POC Glucose (70-99) mg/dl Lactate (0.4-2.0) mmol/L Calcium (8.6-10.3) mg/dl Iron (35-150) mcg/dl TIBC (250-450) mcg/dl Unsaturated IBC (155-355) mcg/dl Transferrin % Sat (15-50) % Ferritin (8-388) ng/ml Procalcitonin 0.06 (0-0.5) ng/ml Urine Color Urine Appearance (Clear) Urine pH (4.5-7.5) Ur Specific [place] (1.000-1.030) Urine Protein (Negative) Urine Glucose (UA) (Negative) Urine Ketones (Negative) Urine Blood (Negative) Urine Nitrite (Negative) Urine Bilirubin (Negative) Urine Urobilinogen (Negative) Ur Leukocyte Esterase (Negative) Urine WBC (Auto) (0-5) /hpf Urine RBC (Auto) (0-4) /hpf U Hyaline Cast (Auto) (0-5) /lpf U Epithel Cells (Auto) (0-5) /lpf Urine Bacteria (Auto) (Negative) Ur Renal Epithelial Cell WBC Casts (0) /lpf Nasal Screen MRSA (PCR) (Negative) Diagnostic Findings Chest X-Ray 07/13/23 10:39 XR chest 1V portable HISTORY: Sepsis COMPARISON: Chest 11/20/2022. FINDINGS: The lungs are clear. Cardiac silhouette is normal in size. No pleural effusions. No pneumothorax. IMPRESSION: No acute process. ACT 112: Negative or not required by law. Electronically signed by: Jayce Eller M.D. 07/13/2023 11:38 AM Duplex Scan Lower Extremity Artery 07/13/23 12:35 US arterial duplex LE LT CLINICAL HISTORY: chronic left LE wound TECHNIQUE: Real-time grayscale and color and spectral Doppler ultrasound imaging of the left lower extremity arteries was performed. Measurements calculated based on NASCET criteria. COMPARISON: None available at the time of this dictation. FINDINGS: Triphasic flow is seen throughout with the exception of the peroneal artery which flow is biphasic. No elevated velocities are seen. Ankle brachial indices were not obtained due to large ankle wound. Brachial: Left: 107 mmHg. Ankle (dorsalis pedis): Right: 180 mmHg. Left: 111 mmHg. Ankle/brachial index: Right: 1.01, Left: 1.04. Reference ranges: Normal Ankle/Brachial Index (LISET) 1.0-1.4; 0.91-0.99 borderline; < or = 0.9 abnormal (0.7-0.89 mild, 0.51-0.69 moderate, < or = 0.5 severe peripheral arterial disease). Normal Toe/Brachial Index (TBI) > or = 0.6; < 0.6 abnormal (0.34-0.59 mild, 0.12-0.34 moderate, < or = 0.11 severe peripheral arterial disease). IMPRESSION: 1. No hemodynamically significant stenosis. 2. Normal ankle-brachial indices. ACT 112: Negative or not required by law. Electronically signed by: Finn Kumar M.D. 07/13/2023 3:11 PM PG Care Time/CCT Total # of Minutes Spent Total Time Spent with Patient: Total time spent is greater than 50% in coordination of care (as documented) at patient's floor/unit and/or counseling patient: Coding Level of Care Code 04218 SUB INP/OBS CARE 3/50MIN Diagnoses URMILA (acute kidney injury) N17.9 Hyperkalemia E87.5 Venous stasis ulcer I83.009; L97.909 Hypothyroidism E03.9 Type 2 diabetes mellitus with peripheral neuropathy E11.42 Microcytic anemia D50.9
[2023-07-14] MEDS ORDERED: DICLOFENAC SOD 1% GEL 100 GM TUBE EXT SCH (09:00)
[2023-07-14] MEDS: INSULIN ASPART PER UNIT CHARGE SC SCH ×4 (09:14→22:24)
[2023-07-14] MEDS: HEPARIN SOD 5,000 UNIT/0.5 ML VIAL SQ SCH ×3 (12:27→22:25)
[2023-07-14] MEDS: PANTOprazole 40 MG TAB PO SCH ×2 (12:28→20:47)
[2023-07-14] MEDS: GABAPENTIN 100 MG CAP PO SCH ×2 (12:28→20:46)
[2023-07-14] MEDS: buPROPion HCl 100 MG TABLET PO SCH (12:28)
[2023-07-14] MEDS: cefTRIAXone SODIUM 2,000 MG in DEXTROSE 5% 50 ML IV SCH (16:32)
[2023-07-14] MEDS: MELATONIN 3 MG TAB PO PRN (20:45)
[2023-07-14] MEDS: ACETAMINOPHEN 325 MG TAB PO PRN (21:51)
[2023-07-15] MEDS: traMADol HCL 50 MG TABLET PO PRN ×4 (00:45→20:16)
[2023-07-15] MEDS: HEPARIN SOD 5,000 UNIT/0.5 ML VIAL SQ SCH ×3 (05:39→22:41)
[2023-07-15] MEDS: LEVOTHYROXINE SODIUM 137 MCG TABLET PO SCH (05:40)
--- NOTE | 2023-07-15 07:39 | Hospitalist Progress Note ---
Date of Service July 15, 2023 Assessment & Plan (1) URMILA (acute kidney injury): Plan: Cr 1.94 on admission with normal prior baseline, multifactorial * Recent Bactrim use for LE cellulitis in diabetic patient * Ibuprofen use (reported 4 tablets q4h for pain) -- AVOIDING FURTHER NSAIDS * RECENTLY started MOUNJARO for her DM which can also cause acute kidney injury BUN/Cr 39/1.94 with K 5.3 (given calcium gluconate/insulin) and lactic 2.4 (repeat 1.3) 1L IVF plasmalyte on admission UA w/ WBC casts, inflammation in kidneys suspected but no reported urinary sympt oms/fever/chills Decision to place on Ceftriaxone IV, continue for now Urine w/ pin-point grownt, monitor Renal dose meds/avoid nephrotoxins as able BUN/Cr improved, 22/0.86 MCV now wnl DVT proph: Heparin SQ Monitor labs on repeat, possible dc tomorrow after eval w/ wound care/follow up urine cx (2) Hyperkalemia: Plan: K 5.3 on admission and was given ca gluconate/insulin and dextrose Repeat k wnl, changed to low K diet Remains stable 4.7, no arrhythmia on monitor Monitor renal profile in AM, if still borderline would encourage low K diet at discharge in meantime Not on any DENIZ/ARB (3) Venous stasis ulcer: Plan: Patient's LLE ulcer is consistent with a non-infected venous stasis/diabetic ulcer with normal granulation No signs of infected drainage or surrounding erythema or cellulitis WBC WNL, procal is essentially negative 0.06 No fevers/chills reported Had been on 7 day course bactrim, held w/ URMILA GIven Ceftriaxone in ER, not given Vanco on admit as did not appear infected Arterial doppler earlier this year with normal TBI for healing --> Repeated on admission and no acute issue Wound RN consulted -- to be seen tomorrow Ceftriaxone as above w/ improvement. consider continued tx w/ keflex at dc for strep coverage? Increased gabapentin to 100mg TID as above for pain, B12 checked and borderline and IM replacement ordered. Can continue PO at d/c (4) Hypothyroidism: Plan: Continue levothyroxine , last TSH wnl in system from June (5) Type 2 diabetes mellitus with peripheral neuropathy: Plan: Monitor BSG ACHS, goal is 110-140 Hold home Mounrosemaryro Start CF of 50 ACHS DMII diet BSGs acceptable Of note, Mounjaro started in the past month, suspect could have contributed to URMILA in setting of Bactrim use Monitor/resume, close f/u and repeat labs w/ PCP if resuming (6) Microcytic anemia: Plan: MCV 78-79, iron panel not significantly deficient. Suspected from ibuprofen use. denied any bleeding/blood, can check fecal occult for completeness continue protonix BID in meantime (recent EGD w/ GI, eosinophilic esophagitis found) MCV now wnl, hgb improved on repeat. no bleeding reported (7) Neuropathy: Plan: 2nd to DM, gabapentin as above for neuropathic pain from ulcers, also checked B12/low normal as outlined consideration for Cymbalta in f/u with PCP for diabetic neuropathy for additional pain control Plan continued inpatient stay, monitor cultures wound RN to see tomorrow possible discharge Sunday Admission and Anticipated Discharge Date Admission Date: July 13, 2023 Supervising Physician Co-Signing Physician Notes The patient was not seen by me. The chart was reviewed. Case discussed with JANINE Akins. Agree with assessment and plan Subjective evaluated this morning, doing well, pain improving but still having burning/stinging/neuropathic pain. Getting tylenol and low dose tramadol. Doesn't really want to try any opiates for breakthrough. will increase tramadol to 50mg as needed and increase gabapentin to TID. No fever/chills. Her leg she reports redness improving, waiting wound RN eval in AM. Renal function returning to normal. Discussed abx while urine cx pending. Questions/concerns addressed at this time. Physical Exam Physical Exam: General: 62yo female sitting up in bed, NAD, appears improved HEENT: head normocephalic, atraumatic, mmm, trachea midline Resp:CTA, slightly diminished in the bases, no w/c, on room air CV: RRR, no significant m/r/g, left leg slightly larger than right leg (see skin), pulse palpable but diminished GI: +BS, soft/NT : no melendez MSK/Neuro/Skin: no slurred speech/facial droop, follows commands as able chronic venous stasis over bilateral ankles, RLE with kerlix/wrapped no surrounding cellulitis but is overly tender to palpation deeper wounds in center of wound appears improved since starting antibiotics Psych: alert oriented to person/place/time Picture from admission as below: Results & Data Results & Data Vital Signs (Past 12 Hours) Vital Signs Temp Pulse Pulse Resp BP Pulse Ox O2 Del Method 07/15/23 03:34 36.7 C 56 L 18 112/71 94 Room Air 07/14/23 21:58 61 Laboratory Results 07/15/23 07/15/23 07/15/23 Range/Units 11:52 07:55 06:52 WBC (4.8-10.8) K/ul RBC (4.20-5.40) M/uL Hgb (12.0-16.0) g/dl Hct (37.0-47.0) % MCV (80.0-100.0) fL MCH (25.0-34.0) pg MCHC (32.0-36.0) g/dL RDW Std Deviation (36.4-46.3) fL RDW Coeff of Radha (11.5-14.5) % Plt Count (130-400) K/uL MPV (9.4-12.4) fL Immature Gran % (Auto) % Neut % (Auto) % Lymph % (Auto) % [place] % (Auto) % Eos % (Auto) % Baso % (Auto) % Neut # (Auto) (1.40-6.50) K/uL Lymph # (Auto) (1.20-3.40) K/uL [place] # (Auto) (0.11-0.59) K/uL Eos # (Auto) (0.00-0.50) K/uL Baso # (Auto) (0.00-0.20) K/uL Immature Gran # (Auto) (0.01-0.20) K/uL Sodium (136-145) mmol/L Potassium (3.5-5.1) mmol/L Chloride (98-107) mmol/L Carbon Dioxide (21-32) mmol/L Anion Gap (3-11) BUN (6-23) mg/dl Creatinine (0.6-1.2) mg/dl Est Cr Clr Drug Dosing ml/min Est GFR ( Amer) ml/min Est GFR (Non-Af Amer) ml/min BUN/Creatinine Ratio (10-20) Glucose (70-99(Fasting)) mg/dl POC Glucose 149 H 146 H (70-99) mg/dl Calcium (8.6-10.3) mg/dl Magnesium (1.7-2.4) mg/dl Vitamin B12 282 (180-914) pg/ml 07/15/23 07/15/23 07/14/23 Range/Units 06:52 06:52 20:06 WBC 6.13 (4.8-10.8) K/ul RBC 4.61 (4.20-5.40) M/uL Hgb 11.5 L (12.0-16.0) g/dl Hct 37.1 (37.0-47.0) % MCV 80.5 (80.0-100.0) fL MCH 24.9 L (25.0-34.0) pg MCHC 31.0 L (32.0-36.0) g/dL RDW Std Deviation 42.8 (36.4-46.3) fL RDW Coeff of Radha 14.7 H (11.5-14.5) % Plt Count 238 (130-400) K/uL MPV 9.3 L (9.4-12.4) fL Immature Gran % (Auto) 1.0 % Neut % (Auto) 62.1 % Lymph % (Auto) 24.1 % [place] % (Auto) 6.9 % Eos % (Auto) 4.9 % Baso % (Auto) 1.0 % Neut # (Auto) 3.81 (1.40-6.50) K/uL Lymph # (Auto) 1.48 (1.20-3.40) K/uL [place] # (Auto) 0.42 (0.11-0.59) K/uL Eos # (Auto) 0.30 (0.00-0.50) K/uL Baso # (Auto) 0.06 (0.00-0.20) K/uL Immature Gran # (Auto) 0.06 (0.01-0.20) K/uL Sodium 136 (136-145) mmol/L Potassium 4.7 (3.5-5.1) mmol/L Chloride 105 (98-107) mmol/L Carbon Dioxide 27 (21-32) mmol/L Anion Gap 4 (3-11) BUN 22 (6-23) mg/dl Creatinine 0.86 D (0.6-1.2) mg/dl Est Cr Clr Drug Dosing 85.6 ml/min Est GFR ( Amer) 85.1 ml/min Est GFR (Non-Af Amer) 73.4 ml/min BUN/Creatinine Ratio 25.6 H (10-20) Glucose 150 H (70-99(Fasting)) mg/dl POC Glucose 147 H (70-99) mg/dl Calcium 8.8 (8.6-10.3) mg/dl Magnesium 1.9 (1.7-2.4) mg/dl Vitamin B12 (180-914) pg/ml 07/14/23 Range/Units 16:44 WBC (4.8-10.8) K/ul RBC (4.20-5.40) M/uL Hgb (12.0-16.0) g/dl Hct (37.0-47.0) % MCV (80.0-100.0) fL MCH (25.0-34.0) pg MCHC (32.0-36.0) g/dL RDW Std Deviation (36.4-46.3) fL RDW Coeff of Radha (11.5-14.5) % Plt Count (130-400) K/uL MPV (9.4-12.4) fL Immature Gran % (Auto) % Neut % (Auto) % Lymph % (Auto) % [place] % (Auto) % Eos % (Auto) % Baso % (Auto) % Neut # (Auto) (1.40-6.50) K/uL Lymph # (Auto) (1.20-3.40) K/uL [place] # (Auto) (0.11-0.59) K/uL Eos # (Auto) (0.00-0.50) K/uL Baso # (Auto) (0.00-0.20) K/uL Immature Gran # (Auto) (0.01-0.20) K/uL Sodium (136-145) mmol/L Potassium (3.5-5.1) mmol/L Chloride (98-107) mmol/L Carbon Dioxide (21-32) mmol/L Anion Gap (3-11) BUN (6-23) mg/dl Creatinine (0.6-1.2) mg/dl Est Cr Clr Drug Dosing ml/min Est GFR ( Amer) ml/min Est GFR (Non-Af Amer) ml/min BUN/Creatinine Ratio (10-20) Glucose (70-99(Fasting)) mg/dl POC Glucose 122 H (70-99) mg/dl Calcium (8.6-10.3) mg/dl Magnesium (1.7-2.4) mg/dl Vitamin B12 (180-914) pg/ml PG Care Time/CCT Total # of Minutes Spent Total Time Spent with Patient: Total time spent is greater than 50% in coordination of care (as documented) at patient's floor/unit and/or counseling patient: Coding Level of Care Code 49113 SUB INP/OBS CARE 3/50MIN Diagnoses URMILA (acute kidney injury) N17.9 Hyperkalemia E87.5 Venous stasis ulcer I83.009; L97.909 Hypothyroidism E03.9 Type 2 diabetes mellitus with peripheral neuropathy E11.42 Microcytic anemia D50.9 Neuropathy G62.9
[2023-07-15 07:46] LABS: Basophils # (auto) 0.06 K/uL (0.00-0.20); Eosinophils % (auto) 4.9 %; Hematocrit (blood only) 37.1 % (37.0-47.0); Hemoglobin 11.5 g/dl (12.0-16.0); Immature Granulocytes # (auto) 0.06 K/uL (0.01-0.20); Lymphocytes # (auto) 1.48 K/uL (1.20-3.40); Lymphocytes % (auto) 24.1 %; Mean Corpuscular Hemoglobin 24.9 pg (25.0-34.0); Mean Corpuscular Volume 80.5 fL (80.0-100.0); Mean Platelet Volume 9.3 fL (9.4-12.4); Monocytes # (auto) 0.42 K/uL (0.11-0.59); Monocytes % (auto) 6.9 %; Neutrophils # (auto) 3.81 K/uL (1.40-6.50); Neutrophils % (auto) 62.1 %; Platelet Count 238 K/uL (130-400); RDW Coefficient of Variation 14.7 % (11.5-14.5); RDW Standard Deviation 42.8 fL (36.4-46.3); Red Blood Count 4.61 M/uL (4.20-5.40); White Blood Count 6.13 K/ul (4.8-10.8)
[2023-07-15 08:16] LABS: BUN Creatinine Ratio 25.6 (10-20); Calcium 8.8 mg/dl (8.6-10.3); Creatinine Clr Calc Pharmacy 85.6 ml/min; Est GFR (African American) 85.1 ml/min; Est GFR (Non-African American) 73.4 ml/min; Magnesium 1.9 mg/dl (1.7-2.4); Potassium 4.7 mmol/L (3.5-5.1)
[2023-07-15] MEDS: PANTOprazole 40 MG TAB PO SCH ×2 (09:19→20:17)
[2023-07-15] MEDS: buPROPion HCl 100 MG TABLET PO SCH (09:19)
[2023-07-15] MEDS: GABAPENTIN 100 MG CAP PO SCH ×3 (09:20→20:15)
[2023-07-15] MEDS: INSULIN ASPART PER UNIT CHARGE SC SCH ×4 (09:23→20:25)
[2023-07-15] MEDS: cefTRIAXone SODIUM 2,000 MG in DEXTROSE 5% 50 ML IV SCH (15:12)
[2023-07-15] MEDS: CYANOCOBALAMIN 1000 MCG/ML VIAL IM SCH (15:45)
[2023-07-15] MEDS: MELATONIN 3 MG TAB PO PRN (20:16)
[2023-07-16] MEDS: traMADol HCL 50 MG TABLET PO PRN ×4 (03:12→19:37)
[2023-07-16] MEDS: HEPARIN SOD 5,000 UNIT/0.5 ML VIAL SQ SCH ×3 (06:47→22:15)
[2023-07-16] MEDS: ACETAMINOPHEN 325 MG TAB PO PRN (06:48)
[2023-07-16] MEDS: LEVOTHYROXINE SODIUM 137 MCG TABLET PO SCH (06:49)
[2023-07-16] MEDS: INSULIN ASPART PER UNIT CHARGE SC SCH ×4 (07:46→21:39)
--- NOTE | 2023-07-16 08:11 | Hospitalist Progress Note ---
Date of Service July 16, 2023 Assessment & Plan (1) URMILA (acute kidney injury): Plan: Cr 1.94 on admission with normal prior baseline, multifactorial * Recent Bactrim use for LE cellulitis in diabetic patient * Ibuprofen use (reported 4 tablets q4h for pain) -- AVOIDING FURTHER NSAIDS * RECENTLY started MOUNJARO for her DM which can also cause acute kidney injury as she does report first 1-2 days following taking this she attempts to drink boost/glucose drink in AM and lunch but does endorse some difficulty staying hydrated at home K was 5.3 (given calcium gluconate/insulin) and lactic 2.4 (repeat 1.3). 1L IVF plasmalyte on admission UA w/ WBC casts, inflammation in kidneys suspected but no reported urinary symptoms/fever/chills Placed on Ceftriaxone IV, urine cx negative (noting she was on Bactrim prior to admission, but denied any urinary symptoms) but will continue now give improvement in LLE exam and consider keflex at dc to cover for strep, additional 2 days? BUN/Cr stable at 21/0.91 Renal dose meds/avoid nephrotoxins Heparin SQ for DVT prophylaxis Likely dc tomrorow (2) Hyperkalemia: Plan: K 5.3 on admission and was given ca gluconate/insulin and dextrose Repeat k wnl, changed to low K diet Remains stable 4.7, no arrhythmia on monitor and on low K diet Is not on any DENIZ/ARB Encourage low K diet at discharge. Monitor BMP in AM (3) Venous stasis ulcer: Plan: Patient's LLE ulcer is consistent with a non-infected venous stasis/diabetic ulcer with normal granulation Procal 0.06, WBC wnl No fever/chills reported was on bactrim for LLE cellulitis/diabetic ulcer Given ceftriaxone in ER, not continued but did resume as above for urinary coverage and likely could complete short course keflex at dc Arterial doppler with normal TBI for healing Wound RN consulted -needs wound f/u, aquacell placed -likely benefit from compression but wound RN not comfortable placing without close f/u. [facility] wound center appt 08/07 Gabapentin added on admission 100mg TID -- can continue/titrate as needed at dc Schedule 1000mg tylenol Q8H B12 checked for neuropathy, LOW. IM x 1, didn't like and will change to PO supplementation and would continue at discharge Tramadol increased to 50mg as needed for breakthrough pain ?Consideration for cymbalta for diabetic neuropathy in f/u (4) Hypothyroidism: Plan: Continue levothyroxine , last TSH wnl in system from June (5) Type 2 diabetes mellitus with peripheral neuropathy: Plan: Monitor BSG ACHS, goal is 110-140 Hold home Mounjaro Start CF of 50 ACHS DMII diet BSGs acceptable Of note, Mounjaro started in the past month, suspect could have contributed to URMILA in setting of Bactrim use Monitor/resume, close f/u and repeat labs w/ PCP if resuming and encouraged patient to ensure staying hydrated on this medication (6) Microcytic anemia: Plan: MCV 78-79, iron panel not significantly deficient. Suspected from ibuprofen use. denied any bleeding/blood, can check fecal occult for completeness continue protonix BID in meantime (recent EGD w/ GI, eosinophilic esophagitis found) Hgb stable on repeat, denied any bleeding at present (7) Neuropathy: Plan: 2nd to DM, gabapentin as above for neuropathic pain from ulcers, also checked B12/low normal as outlined consideration for Cymbalta in f/u with PCP for diabetic neuropathy for additional pain control Plan continued inpatient stay, hopeful dc tomorrow. Will need work note/written out instructions with medications/reasoning (very forgetful patient/memory issues at baseline). Consider continued keflex for strep coverage for cellulitis however much improved on exam and was on course of Bactrim prior to admission. Admission and Anticipated Discharge Date Admission Date: July 15, 2023 Supervising Physician Co-Signing Physician Notes The patient was not seen by me. The chart was reviewed. Case discussed with JANINE Akins. Agree with assessment and plan Subjective eval this morning, doing ok but significant pain to her leg when up and walking. Discussed taking 1gm tylenol q8h, gabapentin TID and increased tramadol to 50mg. She reports the tramadol is effective for breakthrough. Would like to see how she does on scheduled meds for pain control, see wound RN, possible discharge tomorrow. She reports wanting to cut back at work to 32 hours a week, will need work note. Requesting day rx for her meds at discharge. She does note wake up call for her sugars and wanting to get better control. Her parents gave away her uncrustables at home. Memory issues at baseline, got IM b12 yesterday, declined this morning as reported it hurt and will change to PO. She would like typed out instructions at discharge. Gabapentin dose at present largest pill able to swallow -- improvement since dilation/EGD w/ Dr Case (eosinophilic esophagitis) She does endorse after taking her mounjaro the day or two after difficulty with appetite and does drink boost. Discussed keeping hydrated during that time to prevent URMILA, also to continue to avoid NSAIDs. Physical Exam Physical Exam: General: 62yo female sitting up in bed, NAD, appears improved HEENT: head normocephalic, atraumatic, mmm, trachea midline Resp:CTA, slightly diminished in the bases, no w/c, on room air CV: RRR, no significant m/r/g, left leg slightly larger than right leg (see skin), pulse palpable but diminished GI: +BS, soft/NT : no melendez MSK/Neuro/Skin: no slurred speech/facial droop, follows commands as able. memory issues at baseline reported chronic venous stasis over bilateral ankles, RLE with kerlix/wrapped/vasoline gauze removed, improvement in granulation tissue, no significant cellulitis, tenderness to palpation see wound imaging from today as well, seen by Latasha following my eval Psych: alert oriented to person/place/time Results & Data Results & Data Vital Signs (Past 12 Hours) Vital Signs Temp Pulse Pulse Resp BP Pulse Ox O2 Del Method 07/16/23 07:38 36.6 C 63 16 95/64 L 93 Room Air 07/16/23 07:19 75 07/16/23 03:33 36.8 C 64 18 100/66 93 Room Air 07/15/23 23:49 36.8 C 89 20 125/78 95 Room Air 07/15/23 22:01 60 Laboratory Results 07/16/23 07/15/23 07/15/23 Range/Units 07:34 20:18 16:49 Sodium (136-145) mmol/L Potassium (3.5-5.1) mmol/L Chloride (98-107) mmol/L Carbon Dioxide (21-32) mmol/L Anion Gap (3-11) BUN (6-23) mg/dl Creatinine (0.6-1.2) mg/dl Est Cr Clr Drug Dosing ml/min Est GFR ( Amer) ml/min Est GFR (Non-Af Amer) ml/min BUN/Creatinine Ratio (10-20) Glucose (70-99(Fasting)) mg/dl POC Glucose 141 H 134 H 114 H (70-99) mg/dl Calcium (8.6-10.3) mg/dl Magnesium (1.7-2.4) mg/dl Vitamin B12 (180-914) pg/ml 07/15/23 07/15/23 07/15/23 Range/Units 11:52 06:52 06:52 Sodium 136 (136-145) mmol/L Potassium 4.7 (3.5-5.1) mmol/L Chloride 105 (98-107) mmol/L Carbon Dioxide 27 (21-32) mmol/L Anion Gap 4 (3-11) BUN 22 (6-23) mg/dl Creatinine 0.86 D (0.6-1.2) mg/dl Est Cr Clr Drug Dosing 85.6 ml/min Est GFR ( Amer) 85.1 ml/min Est GFR (Non-Af Amer) 73.4 ml/min BUN/Creatinine Ratio 25.6 H (10-20) Glucose 150 H (70-99(Fasting)) mg/dl POC Glucose 149 H (70-99) mg/dl Calcium 8.8 (8.6-10.3) mg/dl Magnesium 1.9 (1.7-2.4) mg/dl Vitamin B12 282 (180-914) pg/ml PG Care Time/CCT Total # of Minutes Spent Total Time Spent with Patient: Total time spent is greater than 50% in coordination of care (as documented) at patient's floor/unit and/or counseling patient: Coding Level of Care Code 24898 SUB INP/OBS CARE 2/35MIN Diagnoses URMILA (acute kidney injury) N17.9 Hyperkalemia E87.5 Venous stasis ulcer I83.009; L97.909 Hypothyroidism E03.9 Type 2 diabetes mellitus with peripheral neuropathy E11.42 Microcytic anemia D50.9 Neuropathy G62.9
[2023-07-16] MEDS: PANTOprazole 40 MG TAB PO SCH ×2 (08:41→21:31)
[2023-07-16] MEDS: buPROPion HCl 100 MG TABLET PO SCH (08:42)
[2023-07-16] MEDS: GABAPENTIN 100 MG CAP PO SCH ×3 (08:42→21:32)
[2023-07-16] MEDS: CYANOCOBALAMIN 1000 MCG/ML VIAL IM SCH (08:43)
[2023-07-16 09:04] LABS: Basophils # (auto) 0.05 K/uL (0.00-0.20); Basophils % (auto) 0.7 %; Eosinophils # (auto) 0.29 K/uL (0.00-0.50); Eosinophils % (auto) 4.2 %; Hematocrit (blood only) 35.3 % (37.0-47.0); Hemoglobin 11.4 g/dl (12.0-16.0); Immature Granulocytes # (auto) 0.06 K/uL (0.01-0.20); Immature Granulocytes % (auto) 0.9 %; Lymphocytes # (auto) 1.47 K/uL (1.20-3.40); Lymphocytes % (auto) 21.5 %; Mean Corpuscular Hemoglobin 25.3 pg (25.0-34.0); Mean Corpuscular Hgb Conc 32.3 g/dL (32.0-36.0); Mean Corpuscular Volume 78.3 fL (80.0-100.0); Mean Platelet Volume 9.5 fL (9.4-12.4); Monocytes % (auto) 7.3 %; Neutrophils # (auto) 4.48 K/uL (1.40-6.50); Neutrophils % (auto) 65.4 %; Platelet Count 242 K/uL (130-400); RDW Coefficient of Variation 14.6 % (11.5-14.5); RDW Standard Deviation 41.1 fL (36.4-46.3); Red Blood Count 4.51 M/uL (4.20-5.40); White Blood Count 6.85 K/ul (4.8-10.8)
[2023-07-16 09:08] LABS: BUN Creatinine Ratio 22.8 (10-20); Calcium 8.6 mg/dl (8.6-10.3); Creatinine Clr Calc Pharmacy 78.7 ml/min; Est GFR (African American) 78.4 ml/min; Est GFR (Non-African American) 67.7 ml/min; Potassium 4.7 mmol/L (3.5-5.1)
[2023-07-16] MEDS: ACETAMINOPHEN 500 MG TAB PO SCH ×2 (11:05→19:37)
[2023-07-16] MEDS: CYANOCOBALAMIN (B-12) 500 MCG TABLET PO SCH (11:05)
[2023-07-16] MEDS: cefTRIAXone SODIUM 2,000 MG in DEXTROSE 5% 50 ML IV SCH (14:14)
[2023-07-16] MEDS ORDERED: oxyCODONE HCL IR 5 MG TAB (IMMEDIATE RELEASE) PO STA (16:36)
[2023-07-16] MEDS ORDERED: oxyCODONE HCL IR 5 MG TAB (IMMEDIATE RELEASE) PO PRN (18:22)
[2023-07-16] MEDS: MELATONIN 3 MG TAB PO PRN (21:32)
[2023-07-17] MEDS: ACETAMINOPHEN 500 MG TAB PO SCH ×2 (03:52→12:13)
[2023-07-17] MEDS: HEPARIN SOD 5,000 UNIT/0.5 ML VIAL SQ SCH ×2 (06:31→13:38)
[2023-07-17] MEDS: LEVOTHYROXINE SODIUM 137 MCG TABLET PO SCH (06:32)
[2023-07-17 09:12] LABS: Est GFR (African American) 75.5 ml/min; Est GFR (Non-African American) 65.1 ml/min; Potassium 4.6 mmol/L (3.5-5.1)
[2023-07-17] MEDS: PANTOprazole 40 MG TAB PO SCH (09:12)
[2023-07-17] MEDS: CYANOCOBALAMIN (B-12) 500 MCG TABLET PO SCH (09:12)
[2023-07-17] MEDS: GABAPENTIN 100 MG CAP PO SCH ×2 (09:12→13:40)
[2023-07-17 09:13] LABS: BUN Creatinine Ratio 24.2 (10-20); Calcium 8.9 mg/dl (8.6-10.3); Creatinine Clr Calc Pharmacy 76.2 ml/min
[2023-07-17] MEDS: buPROPion HCl 100 MG TABLET PO SCH (09:13)
[2023-07-17] MEDS: INSULIN ASPART PER UNIT CHARGE SC SCH ×3 (09:14→17:45)
[2023-07-17] MEDS: traMADol HCL 50 MG TABLET PO PRN ×2 (09:22→14:09)
[2023-07-17] MEDS: cefTRIAXone SODIUM 2,000 MG in DEXTROSE 5% 50 ML IV SCH (16:03)
--- NOTE | 2023-07-17 17:50 | Discharge Summary ---
Date of Service July 17, 2023 Admission HPI Per Admitting Provider Georgiana is a 62 year old female with a PMH significant for DMII, chronic BL LE venous stasis, hypothyroidism, intellectual disability who presented to the [facility] ED on 07/13 at the recommendation of her PCP for worsening left LE wound. Per chart review, the patient has chronic venous stasis of the BL LE's. The patient was reportedly picking at her legs and developed increased erythema, swelling, drainage, and pain in the LLE. Her PCP prescribed a 7 day course of Bactrim on 07/07, but the wound continues to progress. The patient has been stable while in the ED. Labs were significant for a CBC WNL, Cr of 1.94 (baseline is 0.9), BUN of 39, potassium of 5.3, mag of 2.5. Chest xray was negative for acute findings. Prior to admission the patient was given a dose of ceftriaxone, 1L NSS, and a dose of Vancomycin. At the time of the exam the patient was sitting in bed in no acute distress with her mother sitting bedside. The patient explains that she has had chronic LE swelling with darkening on the medical aspects of her LE's. Recently, she has been bumping and picking at the left LE skin changes, she also notes increased burning in the LLE. She has been following up with her PCP outpatient for this ulcer, they had been using Aquacel bandages and conservative treatment. She has been taking the Bactrim as prescribed and has been taking 4 tablets of Ibuprofen, 4 times daily for a week and a half due to her increased pain. She denies recent fever or chills, chest pain, abd pain, nausea, vomiting, diarrhea, melena, dysuria, hematuria, and recent trauma. I explained to her that she should not take that much ibuprofen daily and for that many consecutive days as it can hurt her kidneys, stomach, and heart. Please refer to Dr. Waldron's attestation for any changes to the treatment plan. Discharge Data Allergies Allergy/AdvReac Type Severity Reaction Status Date / Time fluoxetine [From Prozac] Allergy Severe Depression Verified 07/06/23 15:34 fluticasone [From Flonase] Allergy Intermediate Cough Verified 07/06/23 15:34 influenza virus vac qs Allergy Intermediate Hives Verified 07/06/23 15:34 21-22(2 yr up) cell derived [From Flucelvax Quad [id number]] influenza virus vaccine tv Allergy Intermediate Hives Verified 07/06/23 15:34 2012-14(18-49 yrs),rcmb [From Flublok] Consultations 07/13/23 12:07 ED Decision to Admit Stat Ordered Studies 07/13/23 12:35 US arterial duplex LE LT Routine Hospital Course (1) URMILA (acute kidney injury): Cr 1.94 on admission with normal prior baseline, multifactorial * Recent Bactrim use for LE cellulitis in diabetic patient * Ibuprofen use (reported 4 tablets q4h for pain) -- AVOIDING FURTHER NSAIDS * RECENTLY started MOUNJARO for her DM which can also cause acute kidney injury as she does report first 1-2 days following taking this she attempts to drink boost/glucose drink in AM and lunch but does endorse some difficulty staying hydrated at home K was 5.3 (given calcium gluconate/insulin) and lactic 2.4 (repeat 1.3). 1L IVF plasmalyte on admission UA w/ WBC casts, inflammation in kidneys suspected but no reported urinary symptoms/fever/chills Placed on Ceftriaxone IV, urine cx negative (noting she was on Bactrim prior to admission, but denied any urinary symptoms) but will continue now give improveme nt in LLE exam and consider keflex at dc to cover for strep, additional 2 days? BUN/Cr stable at 21/0.91 Renal dose meds/avoid nephrotoxins Heparin SQ for DVT prophylaxis Likely dc tomrorow (2) Hyperkalemia: K 5.3 on admission and was given ca gluconate/insulin and dextrose Repeat k wnl, changed to low K diet Remains stable 4.7, no arrhythmia on monitor and on low K diet Is not on any DENIZ/ARB Encourage low K diet at discharge. Monitor BMP in AM (3) Venous stasis ulcer: Patient's LLE ulcer is consistent with a non-infected venous stasis/diabetic ulcer with normal granulation Procal 0.06, WBC wnl No fever/chills reported was on bactrim for LLE cellulitis/diabetic ulcer Given ceftriaxone in ER, not continued but did resume as above for urinary coverage and likely could complete short course keflex at dc Arterial doppler with normal TBI for healing Wound RN consulted -needs wound f/u, aquacell placed -likely benefit from compression but wound RN not comfortable placing without close f/u. First wound center appt 08/07 Gabapentin added on admission 100mg TID -- can continue/titrate as needed at dc Schedule 1000mg tylenol Q8H B12 checked for neuropathy, LOW. IM x 1, didn't like and will change to PO supplementation and would continue at discharge Tramadol increased to 50mg as needed for breakthrough pain ?Consideration for cymbalta for diabetic neuropathy in f/u (4) Hypothyroidism: Continue levothyroxine , last TSH wnl in system from June (5) Type 2 diabetes mellitus with peripheral neuropathy: Monitor BSG ACHS, goal is 110-140 Hold home Mounjaro Start CF of 50 ACHS DMII diet BSGs acceptable Of note, Mounjaro started in the past month, suspect could have contributed to URMILA in setting of Bactrim use Monitor/resume, close f/u and repeat labs w/ PCP if resuming and encouraged patient to ensure staying hydrated on this medication (6) Microcytic anemia: MCV 78-79, iron panel not significantly deficient. Suspected from ibuprofen use. denied any bleeding/blood, can check fecal occult for completeness continue protonix BID in meantime (recent EGD w/ GI, eosinophilic esophagitis found) Hgb stable on repeat, denied any bleeding at present (7) Neuropathy: 2nd to DM, gabapentin as above for neuropathic pain from ulcers, also checked B12/low normal as outlined consideration for Cymbalta in f/u with PCP for diabetic neuropathy for additional pain control Plan continued inpatient stay, hopeful dc tomorrow. Will need work note/written out instructions with medications/reasoning (very forgetful patient/memory issues at baseline). Consider continued keflex for strep coverage for cellulitis however much improved on exam and was on course of Bactrim prior to admission. Home Health Attestation I certify that this patient is under my care and that I, or a physicians senior assistant manager working with me, had a face to-face encounter that meets the home health [id number] encounter requirements with this patient. The encounter with the patient was in whole, or in part, for the following medical condition, which is the primary reason for home health care (list medical condition): Inner left leg infection - wound I certify that, based on my findings, the following services are medically necessary home health services: My clinical findings support the need for the above services because: Skilled Nsg Assessment Surgical Incision / Wound Skilled Nsg to Assess, Perform and Teach Wound Care Further, I certify that my clinical findings support that this patient is homebound (i.e. absences from home require considerable and taxing effort and are for medical reasons or [employer] services or infrequently or of short d uration when for other reasons) because: Certification for Home Health Services: Based on the above findings, I certify that this patient is confined to the home and needs intermittent snf care, physical therapy and/or speech therapy or continues to need occupational therapy. The patient is under my care, and I have initiated the establishment of the plan of care. This patient will be followed by a physician who will periodically review the plan of care. Discharge Plan Discharge Items Patient Disposition: Home - Home Health Services Reason For Visit: Ulcer of left leg Discharge Diagnosis: 1. ulcer of left leg with infection - improved 2. high potassium - resolved 3. acute kidney injury (high creatinine level/kidney function level) - resolved Activity: Resume your previous activity Bathing Comment: keep dressings clean/dry during showers Non-emergency contact: Primary Care Provider and Specialist Call non-emergency contact if: you have any medication questions, you have a fever, your wound has increased redness, your wound has increased drainage and your wound pain has increased Follow-up/Referrals: Faith Hernández DO, FACEP [Physician] - 08/07/23 10:30 am Liliana Sanchez MD [Primary Care Provider] - (1 week for recheck of left leg ) Diet: Carb Consistent or DM2 Addtl Attending Provider Instructions: Ms Odell, You were hospitalized due to an infected ulcer on your left leg, high potassium, and high creatinine (kidney function level). Your high potassium resolved and your creatinine returned to normal. You received IV antibiotics and wound care for your left leg ulcer. The [facility] wound care team saw you and recommended the following for your dressing changes - 1. Change the dressing on a daily basis; start this 07/18/23. 2. Step by step instructions - * cleanse the wound with saline * lightly pat dry with a sterile 4x4 or similar * apply Adaptic dressing to the wound (you will have to cut the Adaptic to size) * then apply either an ABD pad or 4x4's to cover the Adaptic * finish with Kerlix gauze * secure in place with tape 3. Antibiotics - * cephalexin 500mg three times daily x 7 days; start 07/18/23 4. For pain - * ljor-naz-zsccdem tylenol 1000mg every 8 hours as needed, max 3000mg in 24 hours * oxycodone pain killer medication - 5mg every 6 hours as needed * use oxycodone sparingly * DO NOT DRIVE A CAR when using oxycodone * DO NOT DRINK ALCOHOL when using oxycodone * the oxycodone WILL cause constipation 5. For constipation take 1 or both of the following - * miralax leng-muo-ajfofnc 1 serving daily * senokot 2 tablets daily 6. For neuropathy pain (we started this in the hospital) take - * gabapentin 200mg three times daily * please obtain refills from your primary care provider 7. Your vitamin B12 level is low-normal. Please take fsnv-fim-oxkkljg vitamin B12 1000mcg (1mg) daily. Take for 6 months. Follow-up - see separate section Return to [facility] if - * you have fevers over 100 degrees * you have worsening redness, swelling, pain, drainage, or odor from the left leg wound * you develop severe diarrhea * any other concerns It was our pleasure caring for you! -Dr Panda Pending Studies at Discharge: No Stand-Alone Forms: [facility], Work/School Release, Smoking Cessation Medications and DC Order Prescriptions: New gabapentin 100 mg Capsule 200 mg PO TID Qty: 60 0RF Rx Instructions: for neuropathy oxycodone 5 mg Tablet 5 mg PO Q6H PRN (Reason: pain) Qty: 10 0RF cephalexin 500 mg capsule 500 mg PO TID 7 Days Qty: 21 0RF Rx Instructions: start 07/18/23 Continued trazodone 50 mg tablet 50 mg PO DAILY PRN (Reason: insomnia) Qty: 30 5RF triamcinolone acetonide [Nasacort Allergy] 55 mcg aerosol,spray 2 spray intranasal DAILY Qty: 16.9 3RF Rx Instructions: administer into each nostril levothyroxine 137 mcg tablet 137 mcg PO DAILY Qty: 90 1RF Hold Instructions: pt not currently taking Patient Comments: "TAKES ONCE IN A WHILE" pantoprazole 40 mg tablet,delayed release (DR/EC) 40 mg PO BID Qty: 60 11RF hydroxyzine HCl 25 mg tablet 25 mg PO HS PRN (Reason: anxiety) Qty: 90 3RF ondansetron 4 mg tablet,disintegrating 4 mg PO Q8H PRN (Reason: nausea and vomiting) Qty: 30 0RF tirzepatide 5 mg/0.5 mL pen injector 5 mg subcut WK Qty: 2 0RF benzonatate 100 mg capsule 100 mg PO BID PRN (Reason: cough) Qty: 30 1RF bupropion HCl 100 mg tablet 100 mg PO QAM Patient Comments: PT STATES DOES NOT TAKE EVERY DAY Discontinued sulfamethoxazole-trimethoprim [Bactrim DS] 800-160 mg tablet 1 tab PO BID 7 Days Qty: 14 0RF Discharge Orders: Discharge Order (Routine); Ordered 07/17/23 Ordered By: Carlitos Harrington/Other Patient Handouts: Nutrition for Wound Healing, Managing Type 2 Diabetes Admission Data Admit Date/Time: 07/15/23 15:25 Attending Provider: Carlitos Panda Admit Provider: Carlitos Waldron Primary Care Provider: Liliana Sanchez Other Providers: Carlitos Waldron ; [facility] Coding Diagnoses URMILA (acute kidney injury) N17.9 Hyperkalemia E87.5 Venous stasis ulcer I83.009; L97.909 Hypothyroidism E03.9 Type 2 diabetes mellitus with peripheral neuropathy E11.42 Microcytic anemia D50.9 Neuropathy G62.9
== END 2023-07-17 19:10 | disposition home health service (06) ==
LOC: ED 10:11 → EDINP 10:11 → SUATTDRO 12:15 → EDINP 13:23 → 2W 20:28 → SUATTDRO 07-15 15:25